=== PATIENT | male | born 1960 | race Two or more races ===

== ENCOUNTER 2021-10-22 07:26 | Emergency (ER) | payer BC ==
[~2021-10-22] VITALS: Ht 175.3 cm; Wt 86.2 kg
--- NOTE | 2021-10-22 08:00 | NUR ---
ARRIVAL PRESENTED TO ED #4 AMBULATORY WITH HX OF RIGHT SIDED KIDNEY PAIN, R/O KIDNEY STONE. VS OBTAINED. DR. PATEL NOTIFIED OF PATIENT ARRIVAL.
--- NOTE | 2021-10-22 08:11 | DIREP ---
PROCEDURE:CHEST 1 VIEW COMPARISON:None. INDICATIONS:preop FINDINGS: LUNGS/PLEURA:No significant pulmonary parenchymal abnormalities. No effusions. VASCULATURE:Normal. Unremarkable pulmonary vasculature. CARDIAC:Normal. No cardiac silhouette abnormality or cardiomegaly. MEDIASTINUM:Normal. No visible mass or adenopathy. BONES:Moderate degenerative disc disease and spondylosis without visible acute abnormalities. OTHER:Negative. CONCLUSION:No active cardiopulmonary process demonstrated. Dictated by: Christopher Do M.D. on 10/22/2021 at 08:09 AM
[2021-10-22 08:12] LABS: BILIRUBIN,URINE NEGATIVE (NEGATIVE); UROBILINOGEN,URINE 0.2 E.U./dL (0.2)
--- NOTE | 2021-10-22 08:18 | DIREP ---
PROCEDURE:CT ABDOMEN/PELVIS W/O CONTRAST COMPARISON:None. INDICATIONS:pain TECHNIQUE:Axial images were created through the abdomen and pelvis without intravenous contrast material. No oral contrast was administered. Sagittal and coronal reconstructions were performed from source images. FINDINGS: LUNG BASES:Subpleural 3 mm right lower lobe pulmonary nodule (image 3 series 4) LIVER:Normal. No significant liver lesions are identified. BILIARY:Normal. No visible dilatation or calcification. PANCREAS:Normal. No lesion, fluid collection, ductal dilatation, or atrophy. SPLEEN:Normal. No enlargement or focal lesion. ADRENALS:Small right adrenal nodule measuring 1.1 x 1.0 cm, density most consistent with adrenal adenoma. URINARY TRACT:Normal. No focal lesions or hydronephrosis. AORTA/VASCULAR:Aortic and major branch atherosclerotic calcifications. RETROPERITONEUM:Normal. No mass or adenopathy. BOWEL/MESENTERY:Sigmoid diverticulosis, moderate in severity. Moderate stool burden in the colon. Normal appendix. ABDOMINAL WALL:Normal. No mass or hernia. PELVIC ORGANS:Normal. No visible mass. Pelvic organs appropriate for patient age. BONES:Multilevel lumbar spondylosis. Degenerative anterolisthesis of L4 on L5 measuring 4 mm. OTHER:Negative. CONCLUSION: 1. No CT evidence of acute intra-abdominal/pelvic process. 2. Sigmoid diverticulosis. 3. Moderate stool burden in the colon, correlate for constipation. 4. Tiny pulmonary nodule, no follow-up needed if patient is low risk (no history of tobacco use or neoplasm). CT thorax in 12 months recommended if patient is high risk (history of tobacco use or neoplasm). Dictated by: Christopher Do M.D. on 10/22/2021 at 08:12 AM
--- NOTE | 2021-10-22 08:18 | ER.PDOC ---
General Chief Complaint: Requesting Medical Care Stated Complaint: RT SIDE KIDNEY PAIN Time seen by MD: 08:00 Source: patient Exam Limitations: no limitations History of Present Illness Initial Comments RENAL SONO - STONES Timing/Duration: 1 week Severity/Quality: moderate Radiation: no radiation Associated Symptoms: back pain Exacerbated by: nothing Relieved By: nothing Reviewed Nursing Reviewed: Vital Signs, Abn. Noted All Other Systems: Reviewed and Negative Physical Exam General Appearance: No Apparent Distress, WD/WN HEENT: PERRL/EOMI, Normal ENT Inspection, TMs Normal, Pharynx Normal Neck: Non-Tender, Full Range of Motion, Supple, Normal Inspection Respiratory: chest non-tender, lungs clear, normal breath sounds, no respiratory distress, no accessory muscle use Cardiovascular: Normal Peripheral Pulses, Regular Rate, Rhythm, No Edema, No Gallop, No JVD, No Murmur Gastrointestinal: Normal Bowel Sounds, Non Tender, Soft Back: CVA Tenderness (R) Extremities: Normal Range of Motion, Non-Tender, Normal Inspection, No Pedal Edema, No Calf Tenderness, Normal Capillary Refill, Pelvis Stable 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 (10/22/21 07:43) Urinalysis (10/22/21 07:43) Ct Abd/Pelvis Wo Iv Contrast (10/22/21 07:43) Xr Chest 1v (10/22/21 07:43) Ekg-Routine (10/22/21 07:43) Laboratory Tests Test 10/22/21 07:30 10/22/21 08:05 Urine Collection Type RANDOM Urine Color YELLOW Urine Appearance CLEAR Urine Bilirubin NEGATIVE (NEGATIVE) Urine Ketones NEGATIVE (NEGATIVE) Urine Specific Dolliver 1.020 (1.005-1.030) Urine pH 5.5 (4.5-8.0) Urine Protein 2+ (NEGATIVE) H Urine Urobilinogen 0.2 E.U./dL (0.2) Urine Nitrate NEGATIVE (NEGATIVE) Urine Leukocyte Esterase NEGATIVE (NEGATIVE) Urine Glucose (Auto)(UA) NEGATIVE (NEGATIVE) Urine Blood 3+ (NEGATIVE) H Urine RBC 10-25 RBC/HPF (NONE SEEN) H Urine WBC 0-2 WBC/HPF (0-2) Urine Squamous Epithelial Cells NONE SEEN (<=FEW) Urine Bacteria NONE SEEN (NONE SEEN) White Blood Count 7.2 10^3/uL (4.5-11.0) Red Blood Count 5.08 10^6/uL (4.50-5.90) Hemoglobin 15.4 g/dL (13.9-16.3) Hematocrit 47.1 % (37.0-53.0) Mean Corpuscular Volume 92.7 fL (78-100) Mean Corpuscular Hemoglobin 30.3 pg (26-34) Mean Corpuscular Hemoglobin Concent 32.7 g/dL (33-36.5) L Red Cell Distribution Width 12.9 % (11.5-14.5) Platelet Count 213 10^3/uL (150-400) Mean Platelet Volume 9.4 fL (7.8-11.0) Neutrophils (%) (Auto) 43.8 % (41.0-85.0) Lymphocytes (%) (Auto) 36.9 % (24.0-44.0) Monocytes (%) (Auto) 10.5 % (5.0-12.0) Neutrophils # (Auto) 3.2 10^3/uL (1.8-7.7) Lymphocytes # (Auto) 2.67 10^3/uL1 (1.0-4.8) Monocytes # (Auto) 0.8 10^3/uL (0.3-0.8) Absolute Immature Granulocyte (auto 0.01 10^3 u/L (0-2) Absolute Eosinophils (auto) 0.6 10^3/uL (0.0-0.2) H Immature Granulocytes % 0.10 % (0.00-0.50) Eosinophils % 7.6 % (0.0-5.0) H Basophils % 1.1 % (0.0-0.2) H Basophils # 0.1 10^3/uL (0.0-0.1) Consult/PCP Time Consult/PCP Called: 09:00 Consult/PCP: DR HERNÁNDEZ ER DEPART Departure Time of Disposition: 09:00 Disposition: 01 HOME / SELF CARE / HOMELESS Impression: Primary Impression: RUQ pain Condition: Improved Referrals: JENN HERNÁNDEZ MD (PCP) PRIMARY CARE PROVIDER Duration or Time Spent with Pa: MoonM ASA PATEL MD Oct 22, 2021 08:18
--- NOTE | 2021-10-22 08:20 | PCM.EKG ---
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
[2021-10-22 08:36] LABS: BASOPHIL # 0.1 10^3/uL (0.0-0.1); BASOPHIL % 1.1 % (0.0-0.2); EOSINOPHIL # 0.6 10^3/uL (0.0-0.2); EOSINOPHIL % 7.6 % (0.0-5.0); LYMPHOCYTES # 2.67 10^3/uL1 (1.0-4.8); LYMPHOCYTES % 36.9 % (24.0-44.0); MEAN CORP HGB 30.3 pg (26-34); MONOCYTES # 0.8 10^3/uL (0.3-0.8); MONOCYTES % 10.5 % (5.0-12.0); NEUTROPHIL # 3.2 10^3/uL (1.8-7.7); NEUTROPHILS % 43.8 % (41.0-85.0); PLATELET COUNT 213 10^3/uL (150-400); RED CELL DISTRIBUTION WIDTH 12.9 % (11.5-14.5)
[2021-10-22 08:48] VITALS: BP_SYST 144; BP_SYST 160; BP_DIAS 101; BP_DIAS 90
[2021-10-22 08:54] LABS: CARBON DIOXIDE 27.8 mmol/L (20.0-32)
== END 2021-10-22 09:07 | disposition home or self-care (01) ==
LOC: ER 07:26
DX: R10.11 Right upper quadrant pain (principal); Z20.822 Contact with and (suspected) exposure to COVID-19
CPT/HCPCS: 36415; 71045; 74176; 80053; 81001; 82150; 83690; 85025; 85610; 85730; 86677; 87426; 93005; 99284